=== PATIENT | male | born 1955 | race Caucasian/White ===

== ENCOUNTER 2017-04-29 13:50 | Emergency (ER) | payer MEDICARE, OTHER ==
[~2017-04-29] VITALS: Ht 165.1 cm; Wt 86.2 kg
[2017-04-29] MEDS ORDERED: VENTOLIN HFA18 GM INH (14:00)
[2017-04-29] MEDS ORDERED: SYMBICORT 16010.2 GM INH (14:01)
--- NOTE | 2017-05-01 07:53 | EKG ---
[facility] [address] [facility] [place] [address] Signed Normal sinus rhythm Left axis deviation Abnormal ECG No previous ECGs available Confirmed by SUMEET ARGUETA MD ([id number] on 05/01/2017 7:52:56 AM Electronically Signed By: SUMEET ARGUETA MD 05/01/17 0753 PATIENT NAME: KENDRA JERNIGAN Electrocardiogram DATE OF : 51 PHYSICIAN: SUMEET ARGUETA MD REPORT #: [id number] REPORT IS CONFIDENTIAL AND NOT TO BE RELEASED WITHOUT AUTHORIZATION
== END 2017-04-29 16:55 | disposition home or self-care (01) ==
LOC: ED 13:50
DX: R07.2 Precordial pain (principal); F17.200 Nicotine dependence, unspecified, uncomplicated; Z79.899 Other long term (current) drug therapy
CPT/HCPCS: 71020; 80053; 84484; 85025; 93005; 93010; 99284